=== PATIENT | female | born 1975 | race Caucasian/White ===

== ENCOUNTER 2023-10-27 10:58 | Outpatient (CLI) | payer OTHER, SELFPAY ==
--- NOTE | ~2023-10-27 | XR_ITS ---
XR foot RT min 3V Ordering provider: Erlinda Ryan, SAMUEL History: . 2 nail puncture wounds 1st and 3rd yesterday . Comparison: None. FINDINGS: BONES: No acute fracture or dislocation. Calcaneal spur. Bony fragments are seen near to the navicula r bone which may be old fractures SESAMOID bones. Clinical correlation for tenderness in the area adv ised. JOINT SPACES: Normal. No tarsal coalition. SOFT TISSUES: Normal. IMPRESSION: No acute osseous abnormality of the right foot. Reviewed, dictated and finalized at location A.
== END 2023-10-27 10:59 | disposition home or self-care (01) ==
PROVIDERS: PCP Physician Assistant; Visit Provider Physician Assistant
DX: S91.331A Puncture wound without foreign body, right foot, initial encounter (principal)
CPT/HCPCS: 73630